=== PATIENT | female | born 1975 | race Caucasian/White ===

== ENCOUNTER → 2024-05-19 10:03 | Outpatient (REF) | payer OTHER, SELFPAY ==
[2024-05-19 09:47] LABS: % Basophils 0.8 % (0-2); % Immature Granulocytes 0.2 % (0-0.5); % Lymphocytes 23.2 % (20.5-51.1); % Monocytes 9.7 % (1.7-9.3); % Neutrophils 64.1 % (42.2-75.2); Absolute Eosinophils 0.1 10^3/uL (0-0.7); Absolute Lymphocytes 1.2 10^3/uL (1.2-3.4); Absolute Monocytes 0.5 10^3/uL (0.1-0.6); Absolute Neutrophils 3.2 10^3/uL (1.4-6.5); Hemoglobin 12.8 g/dL (12.0-16.0); Mean Corp Hgb Conc. 33.7 g/dL (33.0-37.0); Mean Corpuscular Hgb 31.5 pg (27.0-31.0); Mean Corpuscular Volume 93.6 fL (81.0-99.0); Mean Platelet Volume 10.8 fL (7.4-10.4); Nucleated Red Blood Cells % 0 %; Platelet Count 159 10^3/uL (130-400); Red Blood Cell Count 4.06 10^6/uL (4.20-5.40); Red Cell Dist. Width 12.6 % (11.5-14.5)
== END ==
LOC: OIDL 10:03
PROVIDERS: ATTENDING PHYSICIAN Internal Medicine Hematology & Oncology
DX: D50.9 Iron deficiency anemia, unspecified (principal)
CPT/HCPCS: 85025

== ENCOUNTER → 2024-06-05 09:55 | Outpatient (REF) | payer OTHER, SELFPAY | LOC: HWRAD 09:55 | PROVIDERS: ATTENDING PHYSICIAN Internal Medicine; FAMILY PHYSICIAN Internal Medicine | DX: M81.0 Age-related osteoporosis without current pathological fracture (principal) | CPT/HCPCS: 77080 ==

== ENCOUNTER → 2025-05-15 07:27 | Outpatient (REF) | payer OTHER, SELFPAY | LOC: HWWDC 07:27 | DX: Z12.31 Encounter for screening mammogram for malignant neoplasm of breast (principal) | CPT/HCPCS: 77063; 77067 ==